=== PATIENT | female | born 2000 | race Caucasian/White ===

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

== ENCOUNTER → 2020-08-22 | Outpatient (CLI) | payer BC ==
[~2020-08-22] MED LIST: CEPH500 PO; HYDR1TAB94 PO
== END | disposition home or self-care (01) ==
LOC: LAB SHORT 07:41 → LAB EV 07:41
DX: J02.9 Acute pharyngitis, unspecified (principal)
CPT/HCPCS: 87081

== ENCOUNTER → 2024-05-05 | Outpatient (CLI) | payer OTHER | LOC: LAB SHORT 09:12 → LAB 09:12 | DX: J02.9 Acute pharyngitis, unspecified (principal) | CPT/HCPCS: 87081 ==

== ENCOUNTER 2024-08-27 22:19 | Emergency (ER) | payer OTHER ==
[~2024-08-27] VITALS: Ht 162.6 cm; Wt 59.0 kg
[2024-08-27 23:50] VITALS: BP 126/84
== END 2024-08-27 23:53 | disposition other institution (70) ==
LOC: ER 22:19
DX: T19.2XXA Foreign body in vulva and vagina, initial encounter (principal); Z79.2 Long term (current) use of antibiotics; W44.8XXA Other foreign body entering into or through a natural orifice, initial encounter
CPT/HCPCS: 99283